=== PATIENT | male | born 1990 | race Caucasian/White ===

== ENCOUNTER 2021-02-18 12:01 | Emergency (ER) | payer BC, SELFPAY ==
--- NOTE | ~2021-02-18 | XR_ITS ---
EXAMINATION: XR tibia fibula LT 2V INDICATION: Left leg pain TECHNIQUE: Two views of the left tibia and fibula are obtained on four radiographs COMPARISON: None available FINDINGS: There is no fracture, dislocation, or subluxation. The bones, soft tissues, and joint space s are normal. IMPRESSION: 1. No acute osseous abnormality. Reviewed, dictated and finalized at location A.
[2021-02-18 12:07] VITALS: BP 122/77; PULSE 91; RESP 16; TEMP 37; O2SAT 100
--- NOTE | 2021-02-18 12:41 | ED.GENADULT ---
HPI - General Adult General Chief complaint: Extremity Problem,Nontraumatic Stated complaint: L LEG INJURY Time Seen by Provider: 02/18/21 12:30 Source: patient, RN notes reviewed and old records reviewed Mode of arrival: ambulatory Limitations: no limitations History of Present Illness HPI narrative: 30-year-old male with complaints of pain to the left handy region for the past 4 days. Patient denies any know injury to his left lower leg, thinks could have stress fracture or handy splints. Patient states that he has been working in [employer] and he has to wear cowboy boots. He states that he worked 9 hours Wednesday, 16 hours Wednesday and 9 hours Wednesday and pain has not resolved or decreased. No swelling to left lower leg or any bruising present,states pain increases with flexion or extension of his foot. MD complaint: pain left lower leg Onset (ago): day(s) (4) Location: left and lower extremity (handy area) Radiation: non-radiation Severity: mild Severity scale (1-10): 2 Quality: aching Exacerbating factors: movement Treatments prior to arrival: NSAID Related Data Home Medications Medication Instructions Recorded Confirmed methylphenidate HCl mg PO 02/18/21 Allergies Allergy/AdvReac Type Severity Reaction Status Date / Time No Known Allergies Allergy Verified 02/18/21 12:08 Review of Systems Review of Systems: Narrative: CONSTITUTIONAL: Denies fever, chills, or sweats. EYES: Denies visual changes, redness, or discharge. ENT: Denies rhinorrhea, congestion, sore throat, or otalgia. CARDIOVASCULAR: Denies chest pain, palpitations, or edema. RESPIRATORY: Denies cough or dyspnea. GASTROINTESTINAL: Denies abdominal pain, nausea, vomiting, or diarrhea. GENITOURINARY: Denies dysuria or hematuria. SKIN: Denies rash or itching. MUSCULOSKELETAL: Denies back pain, joint pain, positive for discomfort to mid lower left leg for past 4 days. NEUROLOGIC: Denies headache, numbness, or weakness. PSYCHIATRIC: Denies anxiety or depression. All systems reviewed & are unremarkable except as noted in HPI and below PMFSH Past Medical History Medical History (Updated 02/18/21 @ 14:25 by Nahed Mcclendon NP) ADHD, adult residual type Surgical History Surgical History (Updated 02/18/21 @ 14:31 by Nahed Mcclendon NP) No pertinent past surgical history Family History Family History (Updated 02/18/21 @ 14:25 by Nahed Mcclendon NP) Other No significant family history Social History Social History (Updated 02/18/21 @ 14:26 by Nahed Mcclendon NP) Smoking status: Never smoker Alcohol intake: current Alcohol use details: socially Substance use: never Living arrangements: with family Gender identity (if verbalized by the patient): Male Comments At time of signature, agree with nursing past medical, surgical, social and family history. There is no relevant family history pertinent to the presenting complaint Exam Narrative: Exam Narrative: GENERAL: Well-appearing, well-nourished, and in no acute distress. HEAD: Normocephalic, atraumatic. EYES: PERRLA and EOMI. ENT: Nares clear, no rhinorrhea or epistaxis. Mucous membranes moist. NECK: Supple.no lymphadenopathy CHEST: Clear to auscultation. No respiratory distress.[id number]% on room air HEART: Regular rate and rhythm. No murmur heard. Normal peripheral pulses. ABDOMEN: Soft, nontender, nondistended, normal active bowel sounds. EXTREMITIES: Normal range of motion. No edema.Pain on palpation to left handy area, no swelling, redness or bruising of tissue noted, pain increases with Movement of left foot. Sensation and circulation intact to left lower leg and foot with strong pedal and posterior tibial pulses, leg is pink and normal warm to touch. SKIN: Warm, dry, no rash. NEURO: No focal deficits. Alert and oriented x3. Course Vital Signs Vital signs: Vital Signs Temperature 37.0 C 02/18/21 12:07 Pulse Rate 91 02/18/21 12:07 Respiratory
== END 2021-02-18 13:02 | disposition home or self-care (01) ==
PROVIDERS: Emergency Provider Registered Nurse
DX: M79.662 Pain in left lower leg (principal); F90.9 Attention-deficit hyperactivity disorder, unspecified type
CPT/HCPCS: 73590; 99203; G0463